=== PATIENT | male | born 1940 | race Caucasian/White ===

== ENCOUNTER → 2017-05-09 | Outpatient (CLI) | payer MEDICARE, OTHER ==
[~2017-05-09] MED LIST: ACYC5CRE6 TP; ASPI-1471 PO; CLOB15CR22 TP; FLU180SY9 IM
[2017-05-09 08:24] LABS: PLATELET COUNT, AUTOMATED 241 K/uL (150-450)
[2017-05-09 08:30] LABS: LDL CHOLESTEROL 98 mg/dl
== END ==
LOC: LAB 07:49
PROVIDERS: ATTEND Family Medicine
DX: I10 Essential (primary) hypertension (principal)
CPT/HCPCS: 36415; 82040; 82247; 82310; 82374; 82435; 82465; 82565; 82947; 83718; 84075; 84132; 84155; 84295; 84443; 84450; 84460; 84478; 84520; 85025